=== PATIENT | male | born 1955 | race Asian ===

== ENCOUNTER 2016-08-01 07:33 | Emergency (ER) | payer BC, OTHER ==
[2016-08-01] MEDS ORDERED: TETANUS/DIPHTHERIA/PERTUSSIS 0.5 ML SYRINGE IM ONE ×2 (07:46→08:19)
== END 2016-08-01 08:57 | disposition home or self-care (01) ==
DX: S60.122A Contusion of left index finger with damage to nail, initial encounter (principal); W22.8XXA Striking against or struck by other objects, initial encounter; Y93.89 Activity, other specified; Y92.009 Unspecified place in unspecified non-institutional (private) residence as the place of occurrence of the external cause; Y99.8 Other external cause status; Z23 Encounter for immunization

== ENCOUNTER 2023-01-09 08:23 | Day surgery (SDC) | payer MEDICARE, OTHER ==
[2023-01-09] MEDS ORDERED: LACTATED RINGERS 1,000 ML IV ONE ×2 (08:44→10:02)
[2023-01-09] MEDS ORDERED: PROPOFOL 200 MG/20 ML VIAL IVP ONE (08:50)
--- NOTE | 2023-01-09 09:02 | ANESTHESIA ---
Pre-Anesthesia VS, & Labs - Diagnosis trouble swallowing - Procedure EGD Vital Signs: Temp Pulse Resp BP Pulse Ox O2 Flow Rate 36.0 C L 57 L 17 182/100 H 98 01/09/23 08:45 01/09/23 08:45 01/09/23 08:45 01/09/23 08:45 01/09/23 08:45 Height: 5 ft 8 in Weight (kg): 74 kg Body Mass Index: 24.7 BMI Classification: Normal - NPO >8 hours - Lab Results Current Lab Results: Laboratory Tests 01/09/23 08:42: POC Whole Bld Glucose 167 H Lab results reviewed: Yes Home Medications and Allergies Home Medications: Ambulatory Orders Losartan Potassium 1 tab PO DAILY 01/08/23 Lovastatin 1 tab PO DAILY 01/08/23 Metoprolol Tartrate [Lopressor] 1 tab PO BID 01/08/23 amLODIPine [Norvasc] 1 tab PO DAILY 01/08/23 metFORMIN [Glucophage] 500 mg PO BID 01/08/23 Losartan Potassium 1 tab PO DAILY 01/08/23 Lovastatin 1 tab PO DAILY 01/08/23 Metoprolol Tartrate [Lopressor] 1 tab PO BID 01/08/23 amLODIPine [Norvasc] 1 tab PO DAILY 01/08/23 metFORMIN [Glucophage] 500 mg PO BID 01/08/23 Allergies/Adverse Reactions: Allergies Allergy/AdvReac Type Severity Reaction Status Date / Time No Known Drug Allergies Allergy Verified 01/08/23 13:01 Anes History & Medical History - Anesthetic History Anesthesia Complications: reports: No previous complications Family history of Anesthesia Complications: Denies Family history of Malignant Hyperthermia: Denies - Medical History Cardiovascular: reports: Hypertension, High cholesterol Pulmonary: reports: None Gastrointestinal: reports: None Urinary: reports: None Neuro: reports: None Endocrine/Autoimmune: reports: Type 2 diabetes Blood Disorders: reports: None Skin: reports: None Smoking Status: Never smoker Exam General: Alert, Oriented x3, Cooperative Dental: WNL Mouth Openin Fingerbreadth Mallampati classification: II Thyromental Distance: 4-6 cm Respiratory: Lungs clear Cardiovascular: Regular rate Plan Anesthesia Type: General Consent for Procedure(s) Verified and Reviewed: Yes Code Status: Attempt Resuscitation ASA classification: 2-Mild systemic disease Is this case an emergency?: No
[2023-01-09] MEDS ORDERED: GLYCOPYRROLATE 1 MG/5 ML VIAL ONE (09:05)
[2023-01-09 10:41] VITALS: BP 129/74
--- NOTE | 2023-01-09 15:10 | ANESTHESIA POST OP EVALUATION ---
Anesthesia Post Eval - Post Anesthesia Eval Vitals: Last Vital Signs Temp 36.3 C L 01/09/23 10:02 Pulse 64 01/09/23 10:35 Resp 16 01/09/23 10:35 BP 129/74 01/09/23 10:35 Pulse Ox 98 01/09/23 10:35 O2 Flow Rate CV Function Including HR & BP: Stable Pain Control: Satisfactory Nausea & Vomiting: Negative Mental Status: Baseline Respiratory Status: Airway Patent Hydration Status: Satisfactory Anesthesia Complications: None
== END 2023-01-09 08:24 | disposition home or self-care (01) ==
LOC: SDS 08:23
PROVIDERS: ATTEND Surgery
PROC: 0DB78ZX Excision of Stomach, Pylorus, Via Natural or Artificial Opening Endoscopic, Diagnostic (ICD-10-PCS; 2023-01-09)
PROC: 0DB28ZX Excision of Middle Esophagus, Via Natural or Artificial Opening Endoscopic, Diagnostic (ICD-10-PCS; 2023-01-09)
PROC: 0DB38ZX Excision of Lower Esophagus, Via Natural or Artificial Opening Endoscopic, Diagnostic (ICD-10-PCS; principal; 2023-01-09 09:45)
DX: R13.10 Dysphagia, unspecified (principal); K22.10 Ulcer of esophagus without bleeding; K44.9 Diaphragmatic hernia without obstruction or gangrene; E11.9 Type 2 diabetes mellitus without complications; Z79.84 Long term (current) use of oral hypoglycemic drugs; K21.00 Gastro-esophageal reflux disease with esophagitis, without bleeding
CPT/HCPCS: 43239; J7120